=== PATIENT | male | born 1950 | race Caucasian/White ===

== ENCOUNTER 2020-10-18 12:42 | Emergency (ER) | payer OTHER, MEDICARE ==
[2020-10-18 13:41] LABS: #Basophils 0.1 thou/uL (0.0-0.2); #Eosinphils 0.1 thou/uL (0.0-0.7); #Lymphocytes 1.3 thou/uL (1.20-3.40); #Monocytes 0.5 thou/uL (0.11-0.59); #Neutrophils 6.3 thou/uL (1.40-6.50); %Basophils 1.1 % (0.0-1.0); %Eosinophils 1.1 % (0.0-10.0); %Lymphocytes 15.7 % (21.0-51.0); %Monocytes 6.2 % (0.0-10.0); %Neutrophils 75.9 % (42.0-75.0); Hemoglobin 12.7 g/dL (14.0-18.0); Mean Corpuscular HGB CONC 33.7 g/dL (32.0-36.0); Mean Corpuscular Volume 94.7 fL (78.0-98.0); Mean Platelet Volume 6.3 fL (7.4-10.4); Platelet Count 212 thou/uL (130-400); RBC Distribution Width 11.4 % (11.5-14.5); Red Blood Cell (RBC) Count 3.98 mill/uL (4.70-6.10); White Blood Cell (WBC) Count 8.3 thou/uL (4.8-10.8)
[2020-10-18 14:01] LABS: ALT (SGPT) 21 U/L (8-55); AST (SGOT) 25 U/L (5-34); Albumin 3.9 g/dL (3.4-4.8); Alkaline Phosphatase 46 U/L (40-110); Anion Gap 11 mmol/L (10-20); BUN (Urea Nitrogen) 22 mg/dL (8.4-25.7); Bilirubin, Total 0.7 mg/dL (0.2-1.2); Calc. Creatinine Clearance 0 mL/min (70-130); Calcium 8.9 mg/dL (7.8-10.44); Carbon Dioxide 29 mmol/L (23-31); Chloride 99 mmol/L (98-107); Globulin 1.8 g/dL (2.4-3.5); Glucose 108 mg/dL (80-115); Potassium 3.9 mmol/L (3.5-5.1); Protein, Total 5.7 g/dL (5.8-8.1); Sodium 135 mmol/L (136-145)
== END 2020-10-18 14:25 | disposition home or self-care (01) ==
LOC: ERS 12:42
DX: R55 Syncope and collapse (principal); R04.0 Epistaxis; I10 Essential (primary) hypertension
CPT/HCPCS: 36415; 80053; 84484; 85025; 93005

== ENCOUNTER 2021-01-07 12:36 | Observation (INO) | payer MEDICARE, OTHER ==
[~2021-01-07 12:36] MED LIST: Iopamidol-370 76% 500 ML 1 ML ONE
[2021-01-07] MEDS ORDERED: Lidocaine 1% w/Epinephrine 1:100K 20 ML VIAL ONE (13:18)
[2021-01-07] MEDS ORDERED: Promethazine HCl 25 MG/ML VIAL ONE (13:55)
[2021-01-07 13:59] LABS: #Basophils 0.1 thou/uL (0.0-0.2); #Eosinphils 0.1 thou/uL (0.0-0.7); #Lymphocytes 1.4 thou/uL (1.20-3.40); #Monocytes 0.5 thou/uL (0.11-0.59); #Neutrophils 4.6 thou/uL (1.40-6.50); %Eosinophils 1.7 % (0.0-10.0); %Monocytes 8.1 % (0.0-10.0); %Neutrophils 68.3 % (42.0-75.0); Hemoglobin 14.4 g/dL (14.0-18.0); Mean Corpuscular HGB CONC 32.8 g/dL (32.0-36.0); Mean Corpuscular Hemoglobin 30.9 pg (27.0-31.0); Mean Corpuscular Volume 94.3 fL (78.0-98.0); Mean Platelet Volume 6.7 fL (7.4-10.4); Platelet Count 230 thou/uL (130-400); RBC Distribution Width 11.7 % (11.5-14.5); Red Blood Cell (RBC) Count 4.67 mill/uL (4.70-6.10); White Blood Cell (WBC) Count 6.7 thou/uL (4.8-10.8)
[2021-01-07 14:26] LABS: ALT (SGPT) 29 U/L (8-55); AST (SGOT) 36 U/L (5-34); Albumin 4.3 g/dL (3.4-4.8); Alkaline Phosphatase 55 U/L (40-110); Anion Gap 16 mmol/L (10-20); BUN (Urea Nitrogen) 15 mg/dL (8.4-25.7); Bilirubin, Total 0.5 mg/dL (0.2-1.2); Calc. Creatinine Clearance 0 mL/min (70-130); Carbon Dioxide 22 mmol/L (23-31); Chloride 104 mmol/L (98-107); Globulin 2.9 g/dL (2.4-3.5); Glucose 106 mg/dL (83-110); Potassium 3.5 mmol/L (3.5-5.1); Protein, Total 7.2 g/dL (5.8-8.1); Sodium 138 mmol/L (136-145)
[2021-01-07] MEDS ORDERED: Acetaminophen 325 MG TAB PO PRN (16:28)
[2021-01-07] MEDS ORDERED: Ondansetron PF 4 MG/2 ML Vial IVP PRN (16:28)
[2021-01-07] MEDS ORDERED: Ondansetron ODT 4 MG TAB PO PRN (16:28)
[2021-01-07] MEDS ORDERED: Acetaminophen 650 MG Suppository PR PRN (16:28)
[2021-01-07] MEDS ORDERED: Promethazine 25 MG TAB PO PRN (16:28)
[2021-01-07] MEDS ORDERED: Promethazine HCl 12.5 MG in Sodium Chloride 0.9% 50 ML IVPB PRN (16:39)
[2021-01-07] MEDS ORDERED: Calcium Carbonate 500 MG ChewTAB PO PRN (22:50)
[2021-01-07] MEDS ORDERED: Melatonin 3 MG TAB PO PRN (22:50)
[2021-01-07 22:53] VITALS: BMI 24.7
[2021-01-07] MEDS ORDERED: Aspirin 81 mg Enteric Coated Tablet PO SCH (23:00)
[2021-01-08 00:21] LABS: SARS-CoV-2 NAA Rapid Test Not Detected (NotDetected)
[2021-01-08 05:00] LABS: Cardiac Risk 3.1 (Less than 4.5)
[2021-01-08] MEDS ORDERED: Levothyroxine Sodium 100 MCG TAB PO SCH (06:00)
[2021-01-08] MEDS ORDERED: Hydrochlorothiazide 25 MG TAB PO SCH (09:00)
[2021-01-08] MEDS ORDERED: Terbinafine 250 MG TAB PO SCH (09:00)
[2021-01-08 11:46] VITALS: BP 162/88; TEMP 98.2
[2021-01-08] MEDS ORDERED: Atorvastatin Calcium 40 MG TAB PO SCH (21:00)
== END 2021-01-08 13:46 | disposition home or self-care (01) ==
LOC: ERS 12:36 → ERHOLD 16:00 → 2SE 21:46
PROVIDERS: ADMIT Student in an Organized Health Care Education/Training Program; ATTEND Student in an Organized Health Care Education/Training Program
DX: H81.10 Benign paroxysmal vertigo, unspecified ear (principal); E03.9 Hypothyroidism, unspecified; I10 Essential (primary) hypertension; B35.1 Tinea unguium; J32.8 Other chronic sinusitis; J98.4 Other disorders of lung; Z79.899 Other long term (current) drug therapy; Z20.822 Contact with and (suspected) exposure to COVID-19
CPT/HCPCS: 70496; 70498; 70551; 71045; 80061; 83036; 84484; 93005; 96365; 99285; U0002; U0005; 36415; 80053; 84443; 85025; G0378; J2550; Q9967